=== PATIENT | male | born 1980 | race Two or more races ===

== ENCOUNTER 2018-09-29 07:54 | Emergency (ER) | payer OTHER ==
[~2018-09-29] VITALS: Ht 167.6 cm; Wt 78.0 kg
[2018-09-29 08:20] VITALS: BP 145/105
== END 2018-09-29 08:42 | disposition home or self-care (01) ==
LOC: ER 07:54
DX: F20.9 Schizophrenia, unspecified (principal); F41.9 Anxiety disorder, unspecified; F32.9 Major depressive disorder, single episode, unspecified; F17.210 Nicotine dependence, cigarettes, uncomplicated; Z76.0 Encounter for issue of repeat prescription